=== PATIENT | female | born 1925 ===

== ENCOUNTER 2016-11-11 09:51 | Inpatient (IN) | payer MEDICARE, OTHER ==
--- NOTE | 2016-11-11 10:17 | ED PDOC ---
Lower Extremity Pain/Injury Time Seen by Provider: 11/11/16 09:56 Chief Complaint (Nursing): Hip Pain Chief Complaint (Provider): right hip pain s/p fall History Per: EMS, Family History/Exam Limitations: clinical condition (Alzheimers) Onset/Duration Of Symptoms: Hrs (~12\), Sudden Onset Severity: Moderate Additional Complaint(s): 89yo female arrives via EMS with family s/p witnessed fall from edge of bed last night, injuring R hip. Family denies head or neck trauma. They report she' s at her baseline mental status- awake/alert confused. She takes no Rx medications. Patient has been bedbound x1.5yrs. - Hip Description Of Injury: Fell Currently Unable To: Straighten Past Medical History Reviewed: Historical Data, Nursing Documentation, Vital Signs - Medical History PMH: Alzheimer's Disease, CVA (mild), HTN Denies: Chronic Kidney Disease - Surgical History Surgical History: No Surg Hx - Family History Family History: States: Unknown Family Hx - Living Arrangements Living Arrangements: With Family - Social History Current smoker - smoking cessation education provided: No - Home Medications Home Medications: Ambulatory Orders Medication Instructions Recorded oxyCODONE/Acetaminophen [Percocet 1 tab PO Q6 PRN #30 tab 11/15/16 5/325 mg Tab] oxyCODONE/Acetaminophen [Percocet 2 tab PO Q6 PRN #30 tab 11/15/16 5/325 mg Tab] - Allergies Allergies/Adverse Reactions: Allergies Allergy/AdvReac Type Severity Reaction Status Date / Time No Known Allergies Allergy Verified 11/11/16 10:01 Review of Systems Review Of Systems: ROS cannot be obtained secondary to pt's inabilty to answer questions. (confused\) Physical Exam - Reviewed Nursing Documentation Reviewed: Yes Vital Signs Reviewed: Yes - Physical Exam Appears: Positive for: Non-toxic Head Exam: Positive for: ATRAUMATIC, NORMAL INSPECTION, NORMOCEPHALIC Skin: Positive for: Normal Color, Warm, DRY Eye Exam: Positive for: EOMI, Normal appearance, PERRL ENT: Positive for: Normal ENT Inspection Neck: Positive for: Normal, Painless ROM Cardiovascular/Chest: Positive for: Regular Rate, Rhythm Respiratory: Positive for: CNT, Normal Breath Sounds Gastrointestinal/Abdominal: Positive for: Bowel Sounds, Soft. 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 Negative for: Motor/Sensory Deficits - Laboratory Results Result Diagrams: 11/12/16 07:05 11/12/16 07:05 Medical Decision Making Medical Decision Making: imaging reveals R hip fracture. Arrangements were made for admission with orthopedic consult. Disposition - Clinical Impression Clinical Impression: Hip fracture - Patient ED Disposition Is Patient to be Admitted: Yes Counseled Patient/Family Regarding: Studies Performed, Diagnosis - Disposition Disposition Time: 11:05 Condition: GOOD - Pt Status Changed To: Hospital Disposition Of: Inpatient - Admit Certification Admit to Inpatient:: After my assessment, the patient will require hospitalization for at least two midnights. This is because of the severity of symptoms shown, intensity of services needed, and/or the medical risk in this patient being treated as an outpatient. - POA Present On Arrival: Falls Or Trauma
[2016-11-11 10:29] LABS: BASO # 0.1 K/uL (0.0-0.2); BASO % 0.5 % (0.0-2.0); HEMATOCRIT 39.5 % (34.0-47.0); LYMPH # 1.3 K/uL (1.0-4.3); LYMPH % 11.5 % (20.0-40.0); MEAN CELL VOLUME 97.8 fl (81.0-99.0); MEAN CORPUSCULAR HEMOGLOBIN 31.7 pg (27.0-31.0); MEAN CORPUSCULAR HGB CONC 32.4 g/dL (33.0-37.0); MEAN PLATELET VOLUME 8.3 fl (7.2-11.7); MONO # 0.6 K/uL (0.0-0.8); MONO % 5.1 % (0.0-10.0); NEUT # 9.7 K/uL (1.8-7.0); NEUT % 82.9 % (50.0-75.0); NRBC % 0.1 % (0.0-0.0); RED CELL DISTRIBUTION WIDTH 18.4 % (11.5-14.5); WHITE BLOOD COUNT 11.7 K/uL (4.8-10.8)
[2016-11-11 10:41] LABS: ALB/GLOB RATIO 1.1 (1.0-2.1); ALKALINE PHOSPHATASE 66 U/L (38-126); AST/SGOT 45 U/L (14-36); BILIRUBIN,TOTAL 1.2 mg/dl (0.2-1.3); BLOOD UREA NITROGEN 18 mg/dl (7-17); CALCIUM 10.2 mg/dL (8.4-10.2); CARBON DIOXIDE 25 mmol/L (22-30); CHLORIDE 104 mmol/L (98-107); GFR AFRICAN-AMERICAN > 60; GLUCOSE,RANDOM 154 mg/dL (65-105); POTASSIUM 4.8 MMOL/L (3.6-5.0); SODIUM 143 mmol/l (132-148); TOTAL PROTEIN 7.8 G/DL (6.3-8.2)
[2016-11-11 10:43] LABS: ALT/SGPT < 6 U/L (9-52)
[2016-11-11] MEDS ORDERED: Sodium Chloride 0.9% 500 ML IV STA (11:30)
--- NOTE | 2016-11-11 12:01 | RAD ---
PROCEDURE: Pelvis right hip dated 11/11/2016. HISTORY: R hip pain s/p fall last night COMPARISON: The comparison made with plain film radiographs of the abdomen 01/17/2015. TECHNIQUE: Frontal view of the pelvis and frontal views of the right and left hips performed. FINDINGS: Current study reveals acute varus angulation deformity of the right proximal femur with what most apparent intertrochanteric fracture of the right hip. Left hip appears intact so far as can be seen. The no evidence of dislocation. IMPRESSION: Apparent intertrochanteric fracture of the right hip with acute varus angulation deformity
[2016-11-11 12:10] LABS: PARTIAL THROMBOPLASTIN TIME 25.7 SECONDS (23.3-32.5)
--- NOTE | 2016-11-11 15:09 | RAD ---
HISTORY: SOB COMPARISON: Comparison chest dated 03/17/2015. FINDINGS: LUNGS: Study is limited due to patient rotation to the left side. There is partial obscuration of the left lung apex by overlying mandible and facial soft tissues. Interstitial markings are slightly increased and coarsened. Rule out sequela of reactive/inflammatory airway disease versus mild pulmonary edema/ CHF. Underlying chronic interstitial changes cannot be completely excluded. PLEURA: No significant pleural effusion identified, no pneumothorax apparent. CARDIOVASCULAR: Heart size is difficult to assess due to patient rotation however heart the did appear enlarged on prior study the OSSEOUS STRUCTURES: No significant abnormalities. VISUALIZED UPPER ABDOMEN: Normal. OTHER FINDINGS: None. IMPRESSION: Limited study as described. Interstitial markings are slightly increased and coarsened. Rule out sequela of reactive/inflammatory airway disease versus mild pulmonary edema/ CHF. Underlying chronic interstitial changes cannot be completely excluded.
[2016-11-12 07:40] LABS: HEMATOCRIT 34.4 % (34.0-47.0); MEAN CELL VOLUME 97.7 fl (81.0-99.0); MEAN CORPUSCULAR HGB CONC 32.7 g/dL (33.0-37.0); RED CELL DISTRIBUTION WIDTH 18.1 % (11.5-14.5); WHITE BLOOD COUNT 10.2 K/uL (4.8-10.8)
[2016-11-12 08:08] LABS: BLOOD UREA NITROGEN 18 mg/dl (7-17); CALCIUM 9.8 mg/dL (8.4-10.2); CARBON DIOXIDE 27 mmol/L (22-30); CHLORIDE 105 mmol/L (98-107); GFR AFRICAN-AMERICAN > 60; GLUCOSE,RANDOM 125 mg/dL (65-105); POTASSIUM 3.8 MMOL/L (3.6-5.0); SODIUM 142 mmol/l (132-148)
--- NOTE | 2016-11-12 08:08 | CP.PCM.CON ---
<Hany Miller - Last Filed: 11/12/16 08:05> History of Present Illness - History of Present Illness History of Present Illness: 89 yo F with pmhx of dementia and CVA presents to ED with daughter after mechanical fall x 2 days ago. Pt has been chair bound for the last 2.5 years due to CVA. Xray imaging revealed right hip fx. Orthopaedics consulted for evaluation and treatment of right hip fx. Pt is nonverbal. Review of Systems - Constitutional Additional comments: Unable to obtain due to patient condition and h/o dementia. Pt is arousable. Past Patient History - Infectious Disease Hx of Infectious Diseases: None - Past Medical History & Family History Past Medical History?: Yes - Past Social History Smoking Status: Never Smoked Home Situation {Lives}: With Family - CARDIAC Hx Hypertension: Yes - PULMONARY Hx Respiratory Disorders: No - NEUROLOGICAL Hx Neurological Disorder: Yes Hx Alzheimer's Disease: Yes HX Cerebrovascular Accident: Yes - HEENT Hx HEENT Problems: No Hx Blind: No Hx Cataracts: No Hx Deafness: No Hx Difficulty Chewing: No Hx Epistaxis: No Hx Glaucoma: No Hx Macular Degeneration: No - RENAL Hx Chronic Kidney Disease: No - ENDOCRINE/METABOLIC Hx Endocrine Disorders: No - HEMATOLOGICAL/ONCOLOGICAL Hx Blood Disorders: No Hx Leukemia: No - INTEGUMENTARY Hx Dermatological Problems: No - MUSCULOSKELETAL/RHEUMATOLOGICAL Hx Falls: Yes - GASTROINTESTINAL Hx Gastrointestinal Disorders: No - GENITOURINARY/GYNECOLOGICAL Hx Genitourinary Disorders: No - PSYCHIATRIC Hx Substance Use: No - SURGICAL HISTORY Hx Surgeries: No - ANESTHESIA Hx Anesthesia: No Meds Allergies/Adverse Reactions: Allergies Allergy/AdvReac Type Severity Reaction Status Date / Time No Known Allergies Allergy Verified 11/11/16 10:01 - Medications Medications: Current Medications Acetaminophen (Tylenol 325mg Tab) 650 mg PO Q6 PRN PRN Reason: Fever >100.4 F Ketorolac Tromethamine (Toradol) 30 mg IVP Q6 PRN PRN Reason: pain 4-10 Last Admin: 11/11/16 17:44 Dose: 30 mg Ondansetron HCl (Zofran Inj) 4 mg IVP Q6 PRN PRN Reason: Nausea/Vomiting Physical Exam - Constitutional Additional comments: RLE: Pt is laying in bed with hips and knees flexed +TTP over right greater trochanter ROM limited due to pain and flexion contractures Calves soft and nontender b/l Distal pulses wnl Results - Vital Signs Recent Vital Signs: Last Vital Signs Temp 98.8 F 11/12/16 07:44 Pulse 103 H 11/12/16 07:44 Resp 18 11/12/16 07:44 BP 145/69 11/12/16 07:44 Pulse Ox 95 11/12/16 07:44 - Labs Result Diagrams: 11/12/16 07:05 11/11/16 10:21 Labs: Laboratory Results - last 24 hr 11/11/16 11/12/16 11:34 07:05 WBC 10.2 RBC 3.52 L Hgb 11.3 L Hct 34.4 MCV 97.7 MCH 32.0 H MCHC 32.7 L RDW 18.1 H Plt Count 189 PT 10.2 INR 0.98 APTT 25.7 Assessment & Plan - Assessment and Plan (Free Text) Assessment: 89 yo F with pmhx of dementia and CVA presents with right hip pain x 2 days ago after mechanical fall Xray imaging of right hip/pelvis reveal right hip femoral neck fx Pt has been chair bound for last 1.5yrs due to previous CVA Recommend: Surgical fixation for right hip fx However, was told yeterday daughter refused surgical fixation Daughter is not currently present at bedside Will call daughter, Elena Ernandez [phone] and discuss treatment plan Pain Control DVT ppx PT/OT - NWB RLE Will discuss with Dr. Preciado and follow up <Bridger Preciado - Last Filed: 11/12/16 10:18> Meds - Medications Medications: Current Medications Acetaminophen (Tylenol 325mg Tab) 650 mg PO Q6 PRN PRN Reason: Fever >100.4 F Ketorolac Tromethamine (Toradol) 30 mg IVP Q6 PRN PRN Reason: pain 4-10 Last Admin: 11/11/16 17:44 Dose: 30 mg Ondansetron HCl (Zofran Inj) 4 mg IVP Q6 PRN PRN Reason: Nausea/Vomiting Results - Vital Signs Recent Vital Signs: Last Vital Signs Temp 98.8 F 11/12/16 07:44 Pulse 103 H 11/12/16 07:44 Resp 18 11/12/16 07:44 BP 145/69 11/12/16 07:44 Pulse Ox 95 11/12/16 07:44 - Labs Result Diagrams: 11/12/16 07:05 11/12/16 07:05 Labs: Laboratory Results - last 24 hr 11/11/16 11/12/16 11:34 07:05 WBC 10.2 RBC 3.52 L Hgb 11.3 L Hct 34.4 MCV 97.7 MCH 32.0 H MCHC 32.7 L RDW 18.1 H Plt Count 189 PT 10.2 INR 0.98 APTT 25.7 Sodium 142 Potassium 3.8 Chloride 105 Carbon Dioxide 27 Anion Gap 15 BUN 18 H Creatinine 0.4 L Est GFR ( Amer) > 60 Est GFR (Non-Af Amer) > 60 Random Glucose 125 H Calcium 9.8 Assessment & Plan - Assessment and Plan (Free Text) Plan: I had detailed discussion with Patient's daughter bedside regarding her condition and different treatment options. Due severe contracture, dementia, non -ambulatory status, and cardiac condition family is electing to proceed with non -operative treatment. Patient will remain NWB LLE Pain control DVT prophylaxis Transfer to rehab when medically fit
--- NOTE | 2016-11-12 08:54 | CP.PCM.PN ---
<Gigi Lux - Last Filed: 11/12/16 11:16> Subjective - Date & Time of Evaluation Date of Evaluation: 11/12/16 Time of Evaluation: 08:25 - Subjective Subjective: Hospitalist progress note 89 y/o F admitted for R/Hip fracture seen at bedside lying in bed on left side with LE in flexion. Patient is arousable and seems in distress when LE are moved. She is nonverbal. No family member present at the time of evaluation. Patient was evaluated by Orthopedic sx who consider patient is not candidate for Sx at this time. Daughter is aware and agree with non surgical intervention. Patient is afebrile Objective - Vital Signs/Intake and Output Vital Signs (last 24 hours): Temp Pulse Resp BP Pulse Ox 98.8 F 103 H 18 145/69 95 11/12/16 07:44 11/12/16 07:44 11/12/16 07:44 11/12/16 07:44 11/12/16 07:44 - Medications Medications: Current Medications Acetaminophen (Tylenol 325mg Tab) 650 mg PO Q6 PRN PRN Reason: Fever >100.4 F Ketorolac Tromethamine (Toradol) 30 mg IVP Q6 PRN PRN Reason: pain 4-10 Last Admin: 11/11/16 17:44 Dose: 30 mg Ondansetron HCl (Zofran Inj) 4 mg IVP Q6 PRN PRN Reason: Nausea/Vomiting - Labs Labs: 11/12/16 07:05 11/12/16 07:05 PT 10.2 SECONDS (9.6-11.2) 11/11/16 11:34 INR 0.98 (0.92-1.08) 11/11/16 11:34 APTT 25.7 SECONDS (23.3-32.5) 11/11/16 11:34 - Constitutional Appears: In Acute Distress (when moved) - Head Exam Head Exam: NORMAL INSPECTION - Eye Exam Eye Exam: PERRL - ENT Exam ENT Exam: Mucous Membranes Moist - Respiratory Exam Respiratory Exam: Clear to Ausculation Bilateral, NORMAL BREATHING PATTERN. absent: Rales, Wheezes - Cardiovascular Exam Cardiovascular Exam: +S1, +S2. absent: Bradycardia, Tachycardia - GI/Abdominal Exam GI & Abdominal Exam: Soft. absent: Distended, Mass - Extremities Exam Extremities Exam: Normal Capillary Refill. absent: Joint Swelling, Pedal Edema - Neurological Exam Neurological Exam: Alert, Reflexes Normal. absent: Oriented x3 Additional comments: Unable to test for strength due to patient mental status - Skin Skin Exam: Normal Color, Warm Assessment and Plan - Assessment and Plan (Free Text) Assessment: 89 y/o F with PMhx of dementia and CVA, admitted for s/p fall and acute R/Hip fracture 1-R/Hip fracture(Acute) s/p fall -Hip/Pelvis Xray in ED positive for intertrochanteric Fx of R/Hip with acute varus angulation deformity -Evaluated by Ortho this morning -F/U Ortho final recommendations -Discuss plan with family member present -Palliative care consulted. Will f/u recs -Cardiology(Dr Dickerson) consulted. Will f/u recs -F/U Echocardiogram -F/U UA -Toradol 30mg IVP Q6h PRn for pain -F/U PT, OT, ST 2-Hx of CVA(late effect CVA) -Chair bound previous to fall -Unable to make decisions/Confused/Disoriented -Soft diet 3-DVT prophylaxis -SCD <Mohsen Bonilla D - Last Filed: 11/12/16 11:27> Objective - Vital Signs/Intake and Output Vital Signs (last 24 hours): Temp Pulse Resp BP Pulse Ox 98.8 F 103 H 18 145/69 95 11/12/16 07:44 11/12/16 07:44 11/12/16 07:44 11/12/16 07:44 11/12/16 07:44 - Medications Medications: Current Medications Acetaminophen (Tylenol 325mg Tab) 650 mg PO Q6 PRN PRN Reason: Fever >100.4 F Ketorolac Tromethamine (Toradol) 30 mg IVP Q6 PRN PRN Reason: pain 4-10 Last Admin: 11/11/16 17:44 Dose: 30 mg Ondansetron HCl (Zofran Inj) 4 mg IVP Q6 PRN PRN Reason: Nausea/Vomiting - Labs Labs: 11/12/16 07:05 11/12/16 07:05 PT 10.2 SECONDS (9.6-11.2) 11/11/16 11:34 INR 0.98 (0.92-1.08) 11/11/16 11:34 APTT 25.7 SECONDS (23.3-32.5) 11/11/16 11:34
--- NOTE | 2016-11-12 10:36 | PQF GENQUE ---
This form is a permanent part of the medical record 11/12/16 Dr. Viveros, Documentation Clarification: In the H&P documentation of "Chair bound due to late effect CVA". Would you please document the late effects (sequelae) of the CVA's. Patient with a history of CVA ( hemorrhagic ) and dementia presents with s/p fall from bed. Noted to have R intertrochanteric fracture. Clarification of your documentation is requested to better reflect the severity of illness and intensity of treatment of your patient. PHYSICIAN'S RESPONSE Based on your medical judgment of the clinical indicators outlined above please clarify the following: [] Practitioner response [] If unable to determine, please check the box, sign and date. Present On Admission (POA) Indicator: [] Present at the time of admission [] Not present at the time of admission [] Clinically Undetermined In responding to this query, please exercise your independent professional judgment. The fact that a question is asked does not imply that any particular answer is desired or expected. Thank you for your clarification on this documentation. If you have any questions please call:[phone] Medical Records Dept * Thank you, Gina Max RN CDMP MTDD
--- NOTE | 2016-11-12 11:04 | CARD ---
APPROVED REPORT EXAM: Two-dimensional and M-mode echocardiogram with Doppler and color Doppler. Other Information Quality : AverageRhythm : NSR Technically limited study due to Fractured Hip INDICATION CVA/TIA 2D DIMENSIONS LVEF (%)55.0 (>50%) Mitral Valve E/A ratio0.0 TDI E/Lateral E'0.0E/Medial E'0.0 LEFT VENTRICLE The left ventricle is normal size. There is borderline concentric left ventricular hypertrophy. The left ventricular function is normal. The left ventricular ejection fraction is within the normal range. There is normal LV segmental wall motion. Transmitral Doppler flow pattern is Grade I-abnormal relaxation pattern. RIGHT VENTRICLE The right ventricle is borderline dilated. There is normal right ventricular wall thickness. The right ventricular systolic function is normal. ATRIA The left atrium size is normal. The right atrium size is normal. AORTIC VALVE The aortic valve is mildly thickened. There is trace aortic regurgitation. There is no aortic valvular stenosis. MITRAL VALVE The mitral valve is mildly thickened. There is no mitral valve stenosis. Mitral regurgitation is mild. TRICUSPID VALVE The tricuspid valve is normal in structure and function. There is no tricuspid valve regurgitation noted. PULMONIC VALVE The pulmonary valve is normal in structure and function. There is no pulmonic valvular regurgitation. GREAT VESSELS The aortic root is normal in size. The IVC is normal in size and collapses >50% with inspiration. PERICARDIAL EFFUSION The pericardium appears normal. <Conclusion> The left ventricle is normal size. There is borderline concentric left ventricular hypertrophy. The left ventricular function is normal. The left ventricular ejection fraction is within the normal range. There is normal LV segmental wall motion. Transmitral Doppler flow pattern is Grade I-abnormal relaxation pattern. There is trace aortic regurgitation. Mitral regurgitation is mild.
--- NOTE | 2016-11-12 11:53 | CON ---
DATE: 11/12/2016 CARDIOLOGY CONSULT REASON FOR CONSULTATION: Preoperative evaluation. HISTORY OF PRESENT ILLNESS: The patient is an 89-year-old female who sustained a stroke in the past. She is practically bedridden, being taken care of by her daughter at home, as well as a [facility]. Apparently, the daughter was changing the patient, and as she left her for a few mom ents to bring a new sheet, the patient was found fallen on the floor. The patient sustained a right intertrochanteric fracture. According to the daughter, the patient had no history of prior falls. S robe the stroke, the patient was able to be assisted to be sitting in a wheelchair, but otherwise, sh e is contracted in her bed, and no history of bedsores because of the close medical attention by the daughter and the home health aide. SOCIAL HISTORY: The patient never smoked or drank. MEDICATIONS: Toradol 30 mg intravenous q. 6 hours p.r.n., Tylenol 650 mg q. 6 hours for fever more t aguilar 100.4, Zofran 4 mg intravenously q. 6 hours p.r.n. REVIEW OF SYSTEMS: No history of seizures. No history of heart attack in the past. When the patie nt asked about chest pain, she was staring and did not give any answer, and according to daughter, at times the patient can respond verbally. PHYSICAL EXAMINATION: GENERAL: The patient is an elderly female who does not appear to be in acute distress. VITAL SIGNS: Blood pressure 145/69, heart rate 103, temperature 98.8, respirations 18. HEENT: Normocephalic. NECK: No JVD. CHEST: Clear. HEART: S1, S2 regular. EXTREMITIES: Contracted. Extremities with trace leg edema. LABORATORY DATA: Hemoglobin and hematocrit 11.3 and 34.4. Platelet count and white count are within normal limits. SMA-7: Sodium 142, potassium 3.8, chloride 105, CO2 of 27, glucose 125. BUN 18, cr eatinine 0.4. PT, PTT within normal limits. EKG revealed sinus rhythm at rate of 69 with APCs and nonspecific T-wave abnormality. Echocardiographic study was reviewed, and it reveals borderline concentric LVH with normal systolic f unction, normal wall motion with trace aortic insufficiency and mild mitral insufficiency. ASSESSMENT: 1. Status post fall, right intertrochanteric fracture. 2. History of cerebrovascular accident. 3. Mild anemia. RECOMMENDATIONS: The patient can undergo open reduction and internal fixation from the cardiac point of view. However, I do recommend obtaining head CT scan without contrast, as the patient was found on the floor by her daughter, not knowing or witnessing the fall itself, and to rule out any internal head injuries, I recommend head CT scan without contrast. Anam Galicia MD cc: [id number] TT: 11/12/2016 11:53:05 Confirmation # [id number] Dictation # [id number] jn
[2016-11-12 19:03] VITALS: BMI 22.4
--- NOTE | 2016-11-12 20:29 | CARD ---
APPROVED REPORT EKG Measurement Heart [id number] <Conclusion> Sinus rhythm with premature supraventricular complexes Nonspecific T wave abnormality Abnormal ECG
--- NOTE | 2016-11-13 11:59 | PN ---
DATE: 11/13/2016 The patient is not verbally communicating. She does not appear to be in any distress. PHYSICAL EXAMINATION: VITAL SIGNS: Blood pressure 131/69, heart rate 66, temperature 97.6, respiration 20. HEENT: Normocephalic. NECK: No JVD. CHEST: Diminished breath sounds over the bases. HEART: S1, S2 regular. EXTREMITIES: Contracture deformity. LABORATORIES: Yesterday's hemoglobin and hematocrit 11.3 and 34.4, white count and platelet count ar e within normal limits. Head CT scan was performed, but the report is still pending. ASSESSMENT: 1. Status post fall, right intertrochanteric fracture. 2. History of cerebrovascular accident. 3. Mild anemia. RECOMMENDATIONS: Continue current p.r.n. IV Toradol as well as p.r.n. IV Zofran. I will follow head CT scan without contrast, further discuss the case with the primary physician in view of the fact th at the patient may not be considered for open reduction internal fixation because of her poor overall general condition. Anam Galicia MD cc: [id number] TT: 11/13/2016 11:59:01 Confirmation # [id number] Dictation # [id number] tn
--- NOTE | 2016-11-13 12:08 | CT ---
PROCEDURE: CT HEAD WITHOUT CONTRAST. HISTORY: S/P Fall. History of CVA COMPARISON: 01/07/2015 TECHNIQUE: Axial computed tomography images were obtained through the head/brain without intravenous contrast. Radiation dose: Total exam DLP = 1181 mGy-cm. This CT exam was performed using one or more of the following dose reduction techniques: Automated exposure control, adjustment of the mA and/or kV according to patient size, and/or use of iterative reconstruction technique. FINDINGS: HEMORRHAGE: No intracranial hemorrhage. BRAIN: No mass effect or edema. 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 VENTRICLES: Unremarkable. No hydrocephalus. CALVARIUM: Unremarkable. PARANASAL SINUSES: Unremarkable as visualized. No significant inflammatory changes. MASTOID AIR CELLS: Unremarkable as visualized. No inflammatory changes. OTHER FINDINGS: None. 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 No acute hemorrhage or fracture.
--- NOTE | 2016-11-13 13:04 | CP.PCM.PN ---
<Jose JGigi - Last Filed: 11/13/16 13:27> Subjective - Date & Time of Evaluation Date of Evaluation: 11/13/16 Time of Evaluation: 10:05 - Subjective Subjective: 89 y/o F seen at bedside, nonverbal, arousable, seems in not acute distress. No family member at the time of examination. She is afebrile, no vomiting, changes in stools or urination reported. Patient seems to be in pain when moved or while switching positions are attempted. Objective - Vital Signs/Intake and Output Vital Signs (last 24 hours): Temp Pulse Resp BP Pulse Ox 97.6 F 66 20 131/69 99 11/13/16 07:43 11/13/16 07:43 11/13/16 07:43 11/13/16 07:43 11/13/16 07:43 - Medications Medications: Current Medications Acetaminophen (Tylenol 325mg Tab) 650 mg PO Q6 PRN PRN Reason: Fever >100.4 F Ketorolac Tromethamine (Toradol) 30 mg IVP Q6 PRN PRN Reason: pain 4-10 Last Admin: 11/11/16 17:44 Dose: 30 mg Ondansetron HCl (Zofran Inj) 4 mg IVP Q6 PRN PRN Reason: Nausea/Vomiting Last Admin: 11/12/16 13:11 Dose: 4 mg - Labs Labs: 11/12/16 07:05 11/12/16 07:05 PT 10.2 SECONDS (9.6-11.2) 11/11/16 11:34 INR 0.98 (0.92-1.08) 11/11/16 11:34 APTT 25.7 SECONDS (23.3-32.5) 11/11/16 11:34 - Constitutional Appears: Non-toxic - Eye Exam Eye Exam: PERRL - ENT Exam ENT Exam: Mucous Membranes Moist - Neck Exam Neck Exam: Normal Inspection - Respiratory Exam Respiratory Exam: Clear to Ausculation Bilateral, NORMAL BREATHING PATTERN - Cardiovascular Exam Cardiovascular Exam: REGULAR RHYTHM, +S1, +S2 - GI/Abdominal Exam GI & Abdominal Exam: Soft, Normal Bowel Sounds. absent: Distended, Tenderness, Rebound - Extremities Exam Extremities Exam: Normal Capillary Refill. absent: Joint Swelling, Pedal Edema - Neurological Exam Neurological Exam: absent: Oriented x3 (Arousable. Nonverbal) - Psychiatric Exam Psychiatric exam: absent: Agitated - Skin Skin Exam: Intact, Warm Assessment and Plan - Assessment and Plan (Free Text) Assessment: 89 y/o F with PMhx of dementia and CVA, admitted for s/p fall and acute R/Hip fracture 1-R/Hip fracture(Acute) s/p fall -Hip/Pelvis Xray in ED positive for intertrochanteric Fx of R/Hip with acute varus angulation deformity -As per Ortho(Dr Preciado) patient is not candidate for Sx -Palliative care consulted. Will f/u recs. -Cardiology(Dr Dickerson) on board -Echocardiogram: Normal LV function. -Toradol 30mg IVP Q6h PRn for pain -F/U PT, OT, ST, loan manager to help decide further management 2-Hx of CVA -Hx of CVA -Patient is currently bedbound -F/U Head CT -Chair bound previous to fall -Unable to make decisions/Confused/Disoriented -Soft diet 3-DVT prophylaxis -SCD <Emeka Swan - Last Filed: 11/13/16 18:01> Objective - Vital Signs/Intake and Output Vital Signs (last 24 hours): Temp Pulse Resp BP Pulse Ox 99.5 F 88 20 128/64 97 11/13/16 16:14 11/13/16 16:14 11/13/16 16:14 11/13/16 16:14 11/13/16 16:14 - Medications Medications: Current Medications Acetaminophen (Tylenol 325mg Tab) 650 mg PO Q6 PRN PRN Reason: Fever >100.4 F Ketorolac Tromethamine (Toradol) 30 mg IVP Q6 PRN PRN Reason: pain 4-10 Last Admin: 11/11/16 17:44 Dose: 30 mg Ondansetron HCl (Zofran Inj) 4 mg IVP Q6 PRN PRN Reason: Nausea/Vomiting Last Admin: 11/12/16 13:11 Dose: 4 mg - Labs Labs: 11/12/16 07:05 11/12/16 07:05 PT 10.2 SECONDS (9.6-11.2) 11/11/16 11:34 INR 0.98 (0.92-1.08) 11/11/16 11:34 APTT 25.7 SECONDS (23.3-32.5) 11/11/16 11:34 Attending/Attestation - Attestation I have personally seen and examined this patient.: Yes I have fully participated in the care of the patient.: Yes I have reviewed all pertinent clinical information, including history, physical exam and plan: Yes Notes (Text): 11/13/16 17:46 Hospitalist Addendum Note Patient was seen and examined with the Farrowing Worker at 3 PM. Examination findings, Assessment and Plan were thoroughly gone over with the resident. Please note that skin exam (performed with Nurse Julián) did not indicate any ulcers on any of the sandra prominences. 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 Both the Farrowing Worker Dr. Gigi Lux and I met with the patient's 2 daughters Elena [phone] and Nhi [phone] around 4 PM today. They are considering Hospice for patient as Orthopedics indicated that the patient was not a good surgical candidate. Hospice consultation was placed and spoke with Noah from Hospice via text and provided him with both daughter's information and Noah will see patient/speak with them tomorrow 11/14/16 to discuss options. Emeka Swan D.O.
--- NOTE | 2016-11-14 12:42 | CP.PCM.PN ---
Subjective - Date & Time of Evaluation Date of Evaluation: 11/14/16 Time of Evaluation: 10:15 - Subjective Subjective: 89 y/o seen at bedside in not acute distress, lying in bed on her left side with knees in flexion position. She is more alert today, still nonverbal but is able to nod to some questions, however communication is still severely impaired. She continues afebrile, no vomiting, diarrhea reported and is tolerating PO soft diet. Patient is pending to be evaluated by palliative care( Noah) he was contacted yesterday by Dr Swan and family is aware of possible plan. Objective - Vital Signs/Intake and Output Vital Signs (last 24 hours): Temp Pulse Resp BP Pulse Ox 98.2 F 84 20 117/83 98 11/14/16 08:33 11/14/16 08:33 11/14/16 08:33 11/14/16 08:33 11/14/16 08:33 - Medications Medications: Current Medications Acetaminophen (Tylenol 325mg Tab) 650 mg PO Q6 PRN PRN Reason: Fever >100.4 F Ketorolac Tromethamine (Toradol) 30 mg IVP Q6 PRN PRN Reason: pain 4-10 Last Admin: 11/11/16 17:44 Dose: 30 mg Ondansetron HCl (Zofran Inj) 4 mg IVP Q6 PRN PRN Reason: Nausea/Vomiting Last Admin: 11/12/16 13:11 Dose: 4 mg - Labs Labs: 11/12/16 07:05 11/12/16 07:05 PT 10.2 SECONDS (9.6-11.2) 11/11/16 11:34 INR 0.98 (0.92-1.08) 11/11/16 11:34 APTT 25.7 SECONDS (23.3-32.5) 11/11/16 11:34 - Constitutional Appears: Non-toxic, No Acute Distress - Eye Exam Eye Exam: PERRL - ENT Exam ENT Exam: Mucous Membranes Moist - Neck Exam Neck Exam: Normal Inspection - Respiratory Exam Respiratory Exam: Clear to Ausculation Bilateral, NORMAL BREATHING PATTERN - Cardiovascular Exam Cardiovascular Exam: +S1, +S2, Murmur (2/6 L/sternal border) - GI/Abdominal Exam GI & Abdominal Exam: Soft, Normal Bowel Sounds. absent: Distended, Rebound - Extremities Exam Extremities Exam: Normal Capillary Refill. absent: Pedal Edema Additional comments: b/l LE weakness, examination difficult due to pain - Neurological Exam Neurological Exam: Awake. absent: Oriented x3 Additional comments: Nonverbal. - Skin Skin Exam: Intact, Normal Color, Warm Assessment and Plan - Assessment and Plan (Free Text) Assessment: 89 y/o F with PMhx of dementia and CVA, admitted for s/p fall and acute R/Hip fracture 1-R/Hip fracture(Acute) s/p fall -Hip/Pelvis Xray in ED positive for intertrochanteric Fx of R/Hip with acute varus angulation deformity -As per Ortho(Dr Preciado) patient is not candidate for Sx -Palliative care consulted(Naoh) and to meet with family today. Will f/u recs. -Cardiology(Dr Dickerson) on board -Toradol 30mg IVP Q6h PRn for pain -Unsuccessful to PT services due to pain -Possible DC today(11/14/16) after palliative care eval and recs. 2-Hx of CVA -Hx of CVA -Patient is currently bedbound -Head CT: Chronic B/L subdural hematomas resolved -Chair bound previous to fall -Unable to make decisions/Confused/Disoriented -Soft diet 3-DVT prophylaxis -SCD
--- NOTE | 2016-11-15 10:06 | CP.PCM.PN ---
<Jose JGigi - Last Filed: 11/15/16 10:13> Subjective - Date & Time of Evaluation Date of Evaluation: 11/15/16 Time of Evaluation: 08:30 - Subjective Subjective: 89 y/o F seen at bedside in not acute distress. no vomiting, diarrhea, or changes in urination reported. She is stable, continues nonverbal but arousable and more lucid at times. Afebrile. She was evaluated by palliative care yesterday and family will make a decision today after meeting with Noah last night. Pain is controlled with meds. She is currently bedbound. Objective - Vital Signs/Intake and Output Vital Signs (last 24 hours): Temp Pulse Resp BP Pulse Ox 97.7 F 57 L 18 133/78 99 11/15/16 08:26 11/15/16 08:26 11/15/16 08:26 11/15/16 08:26 11/15/16 08:26 - Medications Medications: Current Medications Acetaminophen (Tylenol 325mg Tab) 650 mg PO Q6 PRN PRN Reason: Fever >100.4 F Ketorolac Tromethamine (Toradol) 30 mg IVP Q6 PRN PRN Reason: pain 4-10 Last Admin: 11/11/16 17:44 Dose: 30 mg Ondansetron HCl (Zofran Inj) 4 mg IVP Q6 PRN PRN Reason: Nausea/Vomiting Last Admin: 11/12/16 13:11 Dose: 4 mg - Labs Labs: 11/12/16 07:05 11/12/16 07:05 PT 10.2 SECONDS (9.6-11.2) 11/11/16 11:34 INR 0.98 (0.92-1.08) 11/11/16 11:34 APTT 25.7 SECONDS (23.3-32.5) 11/11/16 11:34 - Constitutional Appears: Non-toxic, No Acute Distress - Head Exam Head Exam: NORMAL INSPECTION - Eye Exam Eye Exam: PERRL - ENT Exam ENT Exam: Mucous Membranes Moist - Neck Exam Neck Exam: Normal Inspection - Respiratory Exam Respiratory Exam: Clear to Ausculation Bilateral, NORMAL BREATHING PATTERN. absent: Rales, Wheezes - Cardiovascular Exam Cardiovascular Exam: +S1, +S2, Murmur (2/6 systolic murmur. L/sternal border) - GI/Abdominal Exam GI & Abdominal Exam: Soft, Normal Bowel Sounds. absent: Distended, Mass - Extremities Exam Extremities Exam: Normal Capillary Refill. absent: Pedal Edema - Neurological Exam Neurological Exam: Alert. absent: Oriented x3 (nonverbal. arousable) Assessment and Plan - Assessment and Plan (Free Text) Assessment: 89 y/o F with PMhx of dementia and CVA, admitted for s/p fall and acute R/Hip fracture 1-R/Hip fracture(Acute) s/p fall -Hip/Pelvis Xray in ED positive for intertrochanteric Fx of R/Hip with acute varus angulation deformity -As per Ortho(Dr Preciado) patient is not candidate for Sx -Palliative care consulted(Noah) evaluated patient and met with family. Pending family decision today -Toradol 30mg IVP Q6h PRn for pain -patient not candidate for PT services at this time. -Possible DC home today with palliative care 2-Hx of CVA -Hx of CVA -Patient is currently bedbound -Head CT: Chronic B/L subdural hematomas resolved -Unable to make decisions/Confused/Disoriented -Soft diet 3-DVT prophylaxis -SCD <Emeka Swan - Last Filed: 11/15/16 15:39> Objective - Vital Signs/Intake and Output Vital Signs (last 24 hours): Temp Pulse Resp BP Pulse Ox 97.7 F 57 L 18 133/78 99 11/15/16 08:26 11/15/16 08:26 11/15/16 08:26 11/15/16 08:26 11/15/16 08:26 - Medications Medications: Current Medications Acetaminophen (Tylenol 325mg Tab) 650 mg PO Q6 PRN PRN Reason: Fever >100.4 F Ketorolac Tromethamine (Toradol) 30 mg IVP Q6 PRN PRN Reason: pain 4-10 Last Admin: 11/11/16 17:44 Dose: 30 mg Ondansetron HCl (Zofran Inj) 4 mg IVP Q6 PRN PRN Reason: Nausea/Vomiting Last Admin: 11/12/16 13:11 Dose: 4 mg - Labs Labs: 11/12/16 07:05 11/12/16 07:05 PT 10.2 SECONDS (9.6-11.2) 11/11/16 11:34 INR 0.98 (0.92-1.08) 11/11/16 11:34 APTT 25.7 SECONDS (23.3-32.5) 11/11/16 11:34 Assessment and Plan (1) Hip fracture, right Status: Acute (2) History of CVA (cerebrovascular accident) Status: Chronic Attending/Attestation - Attestation I have personally seen and examined this patient.: Yes I have fully participated in the care of the patient.: Yes I have reviewed all pertinent clinical information, including history, physical exam and plan: Yes Notes (Text): 11/15/16 15:38 Hospitalist Addendum Note Patient was seen by myself at 11:50 AM 11/15/16 667-2 Exam, Assessment and Plan, were thoroughly gone over with Ditching Machine Operator Dr. Gigi Lux. Please see Discharge Summary dated 11/15/16 for further details. Emeka Swan D.O.
--- NOTE | 2016-11-15 15:26 | CP.PCM.DIS ---
Provider - Provider Date of Admission: 11/11/16 11:31 Attending physician: Samreen Pastrana DO Consults: Orthopedics Dr. Ilana Gr Time Spent in preparation of Discharge (in minutes): 40 Diagnosis - Discharge Diagnosis (1) Hip fracture, right Status: Acute (2) History of CVA (cerebrovascular accident) Status: Chronic Hospital Course - Lab Results Lab Results: Most Recent Lab Values WBC 10.2 K/uL (4.8-10.8) 11/12/16 07:05 RBC 3.52 Mil/uL (3.80-5.20) L 11/12/16 07:05 Hgb 11.3 g/dL (12.0-16.0) L 11/12/16 07:05 Hct 34.4 % (34.0-47.0) 11/12/16 07:05 MCV 97.7 fl (81.0-99.0) 11/12/16 07:05 MCH 32.0 pg (27.0-31.0) H 11/12/16 07:05 MCHC 32.7 g/dL (33.0-37.0) L 11/12/16 07:05 RDW 18.1 % (11.5-14.5) H 11/12/16 07:05 Plt Count 189 K/uL (130-400) 11/12/16 07:05 MPV 8.3 fl (7.2-11.7) 11/11/16 10:21 Neut % (Auto) 82.9 % (50.0-75.0) H 11/11/16 10:21 Lymph % (Auto) 11.5 % (20.0-40.0) L 11/11/16 10:21 [place] % (Auto) 5.1 % (0.0-10.0) 11/11/16 10:21 Eos % (Auto) 0.0 % (0.0-4.0) 11/11/16 10:21 Baso % (Auto) 0.5 % (0.0-2.0) 11/11/16 10:21 Neut # 9.7 K/uL (1.8-7.0) H 11/11/16 10:21 Lymph # 1.3 K/uL (1.0-4.3) 11/11/16 10:21 [place] # 0.6 K/uL (0.0-0.8) 11/11/16 10:21 Eos # 0.0 K/uL (0.0-0.7) 11/11/16 10:21 Baso # 0.1 K/uL (0.0-0.2) 11/11/16 10:21 PT 10.2 SECONDS (9.6-11.2) 11/11/16 11:34 INR 0.98 (0.92-1.08) 11/11/16 11:34 APTT 25.7 SECONDS (23.3-32.5) 11/11/16 11:34 Sodium 142 mmol/l (132-148) 11/12/16 07:05 Potassium 3.8 MMOL/L (3.6-5.0) 11/12/16 07:05 Chloride 105 mmol/L (98-107) 11/12/16 07:05 Carbon Dioxide 27 mmol/L (22-30) 11/12/16 07:05 Anion Gap 15 (10-20) 11/12/16 07:05 BUN 18 mg/dl (7-17) H 11/12/16 07:05 Creatinine 0.4 mg/dL (0.7-1.2) L 11/12/16 07:05 Est GFR ( Amer) > 60 11/12/16 07:05 Est GFR (Non-Af Amer) > 60 11/12/16 07:05 Random Glucose 125 mg/dL (65-105) H 11/12/16 07:05 Calcium 9.8 mg/dL (8.4-10.2) 11/12/16 07:05 Total Bilirubin 1.2 mg/dl (0.2-1.3) 11/11/16 10:21 AST 45 U/L (14-36) H 11/11/16 10:21 ALT < 6 U/L (9-52) L D 11/11/16 10:21 Alkaline Phosphatase 66 U/L (38-126) 11/11/16 10:21 Total Protein 7.8 G/DL (6.3-8.2) 11/11/16 10:21 Albumin 4.0 g/dL (3.5-5.0) 11/11/16 10:21 Globulin 3.8 gm/dL (2.2-3.9) 11/11/16 10:21 Albumin/Globulin Ratio 1.1 (1.0-2.1) 11/11/16 10:21 - Hospital Course Hospital Course: 89 y/o F with PMhx of dementia, L/side Intraparenchymal and Subaracnoid hHemorrhage and R/side Hemorrhagic Infarct presented to the ED by EMS on s/p witnessed (by Daughter Elena [phone]) fall . Daughter states patient slipped from bed to the floor while being changed. Denies any evident signs of pain or trauma at the time but this morning because patient c/o pain she decided to bring her to ED. According to daughter, patient's mental status is similar to her baseline which varies from times of lucidity and confusion during the day. She has been chair-bound for the past year and a half after CVA. She received home PT services and outpatient rehab at the time but never regained previous functionality. She is able to eat soft diet, is urinary and feces incontinent. Repeat CT Head during her hospital stay showed diffuse atrophy and chronic periventricular white matter ischemic disease, evidence of chronic bilateral subdural hematomas that have resolved, and no acute hemorrhage and no acute fracture. She was seen by Orthopedics who deemed her not to be a good surgical candidate. Hospice was consulted and both Daughters Elena and Nhi ([phone]) have decided on Home Hospice which she was accepted to by [facility]. Rx written for Percocet 5/325 mg PO 1 tab PO Q6H PRN Moderate Pain and 2 tab PO Q6H PRN Severe Pain which was given to Nurse Florecita. [facility] to provide further pain management and hospice care at patient's home. Review of Systems: not possible as patient is nonverbal - Constitutional Appears: Non-toxic, No Acute Distress - Head Exam Head Exam: NORMAL INSPECTION - Eye Exam Eye Exam: PERRL - ENT Exam ENT Exam: Mucous Membranes Moist - Neck Exam Neck Exam: Normal Inspection - Respiratory Exam Respiratory Exam: Clear to Ausculation Bilateral, NORMAL BREATHING PATTERN. absent: Rales, Wheezes - Cardiovascular Exam Cardiovascular Exam: +S1, +S2, Murmur (2/6 systolic murmur. L/sternal border) - GI/Abdominal Exam GI & Abdominal Exam: Soft, Normal Bowel Sounds. absent: Distended, Mass - Extremities Exam Extremities Exam: Normal Capillary Refill. absent: Pedal Edema - Neurological Exam Neurological Exam: Alert. absent: Oriented x3 (nonverbal. arousable) Please refer to the medical record for full details of patient's hospital stay. Emeka Swan D.O. Discharge Exam - Head Exam Head Exam: NORMAL INSPECTION Discharge Plan - Follow Up Plan Condition: GOOD Disposition: HOME/ ROUTINE Instructions: Dehydration (DC), Alzheimer Disease (DC), Pelvic Fracture (DC)
[2016-11-15] MEDS ORDERED: Oxycodone/Acetaminophen 5/325 mg Tab PO PRN ×2 (16:10)
[2016-11-15 16:52] VITALS: BP 145/65; PULSE 86; RESP 20; TEMP 97.6
[2016-11-15 17:08] VITALS: O2SAT 91
== END 2016-11-15 18:06 | disposition hospice, home (50) | DRG 536 ==
LOC: H.ER 09:51 → H.ERHOLD 11:31 → H.MEDSURG1 12:50
PROVIDERS: ADMIT Student in an Organized Health Care Education/Training Program; ATTEND Student in an Organized Health Care Education/Training Program
DX: S72.141A Displaced intertrochanteric fracture of right femur, initial encounter for closed fracture (principal); I69.351 Hemiplegia and hemiparesis following cerebral infarction affecting right dominant side; G30.9 Alzheimer's disease, unspecified; F02.80 Dementia in other diseases classified elsewhere, unspecified severity, without behavioral disturbance, psychotic disturbance, mood disturbance, and anxiety; I69.354 Hemiplegia and hemiparesis following cerebral infarction affecting left non-dominant side; I10 Essential (primary) hypertension; I69.318 Other symptoms and signs involving cognitive functions following cerebral infarction; M21.151 Varus deformity, not elsewhere classified, right hip; D64.9 Anemia, unspecified; I08.0 Rheumatic disorders of both mitral and aortic valves; W06.XXXA Fall from bed, initial encounter; Z51.5 Encounter for palliative care; Z74.01 Bed confinement status; Z99.3 Dependence on wheelchair; Y92.003 Bedroom of unspecified non-institutional (private) residence as the place of occurrence of the external cause; Y93.9 Activity, unspecified